=== PATIENT | female | born 1945 | race Caucasian/White ===

== ENCOUNTER 2021-01-20 07:00 | Emergency (ER) | payer OTHER ==
[~2021-01-20 07:00] MED LIST: ADALAT CC30 MG PO; CLONAZEPAM0.5 MG PO; CLONIDINE HCL0.1 M1 PO; CYCLOBENZAPRINE10 MG PO; HYZAAR 100-251 EACH PO; INDERAL20 MG PO; K-DUR20 MEQ PO; KLOR-CON M20 T20 MEQ PO; MEDROL 4MG DOSEP4 MG PO; NORCO 5-325 TA1 EACH PO; PLAVIX75 MG PO; PRILOSEC20 MG PO; PROPRANOLOL HCL80 M1 PO; ULTRAM50 MG PO; XANAX0.25 MG PO; ZOCOR20 MG PO; ZOLOFT50 MG PO
[2021-01-20 07:59] LABS: EOSINOPHIL 2.5 % (0-7); HCT 45.6 % (37.0-47.0); HGB 15.6 g/dl (12.5-16.0); LYMPHOCYTE 31.2 % (15-48); MCH 30.8 pg (25.0-31.0); MCHC 34.2 g/dL (32.0-36.0); MCV 89.9 fL (78.0-100.0); MONOCYTE 7.5 % (0-12); MPV 10.5 fL (6.0-9.5); NEUTROPHIL 57.5 % (41-80); NRBC 0; PLT 363 K/uL (150-400); RBC 5.07 M/uL (4.20-5.40); RDW 12.4 % (11.5-14.0); WBC 5.9 K/uL (4.0-10.5)
[2021-01-20 08:04] LABS: BUN/CREAT RATIO (CALC) 21.4 RATIO; CREATININE 0.56 mg/dL (0.51-0.95); POTASSIUM 3.6 mmol/L (3.5-5.1)
== END 2021-01-20 08:30 | disposition home or self-care (01) ==
LOC: FER 07:00
PROVIDERS: Emergency Medicine
DX: I10 Essential (primary) hypertension (principal); I44.0 Atrioventricular block, first degree; I44.7 Left bundle-branch block, unspecified; E78.5 Hyperlipidemia, unspecified; Z86.73 Personal history of transient ischemic attack (TIA), and cerebral infarction without residual deficits; Z88.0 Allergy status to penicillin; Z79.899 Other long term (current) drug therapy
CPT/HCPCS: 36415; 80048; 85025; 93005

== ENCOUNTER 2021-08-08 11:50 | Emergency (ER) | payer OTHER ==
[~2021-08-08] VITALS: Ht 172.7 cm; Wt 86.2 kg
[2021-08-08 12:33] LABS: EOSINOPHIL 2.6 % (0-7); HCT 44.2 % (37.0-47.0); HGB 14.8 g/dl (12.5-16.0); LYMPHOCYTE 24.3 % (15-48); MCH 30.5 pg (25.0-31.0); MCHC 33.5 g/dL (32.0-36.0); MCV 90.9 fL (78.0-100.0); MONOCYTE 8.1 % (0-12); MPV 10.3 fL (6.0-9.5); NEUTROPHIL 63.7 % (41-80); NRBC 0; PLT 422 K/uL (150-400); RBC 4.86 M/uL (4.20-5.40); RDW 12.9 % (11.5-14.0); WBC 9.1 K/uL (4.0-10.5)
[2021-08-08 12:43] LABS: INR 1.02 (0.9-1.2); PROTHROMBIN TIME 12.8 SECONDS (11.8-13.4); PTT 30.8 SECONDS (24.4-34.7)
[2021-08-08 12:52] LABS: ALBUMIN 3.9 g/dL (3.4-5.0); BILIRUBIN - TOTAL 0.6 mg/dL (0.2-1.0); BUN/CREAT RATIO (CALC) 21.7 RATIO; CREATININE 0.6 mg/dL (0.51-0.95); GLOBULIN (CALCULATION) 3.1 g/dL
[2021-08-08 14:04] LABS: BILIRUBIN NEGATIVE (NEGATIVE); BLOOD NEGATIVE Ery/uL (NEGATIVE); CLARITY CLEAR (CLEAR); COLOR YELLOW (YELLOW); GLUCOSE (U) NORMAL (NORMAL); LEUKOCYTES NEGATIVE Leu/uL (NEGATIVE); NITRITE NEGATIVE (NEGATIVE); PROTEIN NEGATIVE (NEGATIVE); UROBILINOGEN 0.2 mg/dL (0.2-1.0)
[2021-08-08 14:47] LABS: CORONAVIRUS 2019 SARS-COV-2 NEGATIVE (NEGATIVE); INFLUENZA A NAA NEGATIVE (NEGATIVE)
[2021-08-08] MEDS ORDERED: ANTIVERT12.5 MG PO (15:05)
== END 2021-08-08 15:30 | disposition home or self-care (01) ==
LOC: FER 11:50
PROVIDERS: Internal Medicine
DX: R42 Dizziness and giddiness (principal); I10 Essential (primary) hypertension; Z88.0 Allergy status to penicillin; Z86.73 Personal history of transient ischemic attack (TIA), and cerebral infarction without residual deficits; Z87.891 Personal history of nicotine dependence; Z20.822 Contact with and (suspected) exposure to COVID-19
CPT/HCPCS: 36415; 70450; 71045; 80053; 81003; 84145; 84484; 85025; 85610; 85730; 93005; J7030; U0002